=== PATIENT | female | born 1990 | race Caucasian/White ===

== ENCOUNTER 2018-10-06 13:37 | Outpatient (CLI) | payer OTHER ==
--- NOTE | 2018-10-06 16:26 | ULT ---
ULTRASOUND PELVIC TRANSVAGINAL WITH DOPPLER: HISTORY: Abdominal pain. COMPARISON: None. TECHNIQUE: Real-time, hull scale, color Doppler and spectral analysis of the pelvis was performed transabdominal and transvaginal approach. Uterus measures 9.3 x 5.6 cm. Endometrial thickness is 1.7 cm. Small v olume free fluid in the cul-de-sac. The right ovary measures 2.8 x 1.7 x 2 cm and the left ovary measures 3 x 2.9 x 2.5 cm. No abnormal adnexal mass. Likely an anterior lower uterine body scar. IMPRESSION: Thickened endometrium measuring 1.7 cm. Endometrial hyperplasia a possibility given the patient's ag e. POS: [facility]
== END 2018-10-06 13:38 | disposition home or self-care (01) ==
LOC: BICULT 13:37
PROVIDERS: ATTEND Family Medicine
DX: R10.84 Generalized abdominal pain (principal); R93.89 Abnormal findings on diagnostic imaging of other specified body structures
CPT/HCPCS: 76856

== ENCOUNTER 2018-10-15 13:27 | Emergency (ER) | payer OTHER ==
[2018-10-15 14:41] LABS: #Basophils 0.1 thou/uL (0.0-0.2); #Eosinphils 0.2 thou/uL (0.0-0.7); #Lymphocytes 1.9 thou/uL (1.20-3.40); #Monocytes 0.4 thou/uL (0.11-0.59); #Neutrophils 5.3 thou/uL (1.40-6.50); %Basophils 0.7 % (0.0-1.0); %Lymphocytes 24.4 % (21.0-51.0); %Monocytes 4.6 % (0.0-10.0); %Neutrophils 67.3 % (42.0-75.0); Hemoglobin 13.2 g/dL (12.0-16.0); Mean Corpuscular HGB CONC 31.9 g/dL (32.0-36.0); Mean Corpuscular Hemoglobin 26.1 pg (27.0-31.0); Mean Corpuscular Volume 81.7 fL (78.0-98.0); Mean Platelet Volume 7.5 fL (7.4-10.4); Platelet Count 267 thou/uL (130-400); RBC Distribution Width 11.2 % (11.5-14.5); Red Blood Cell (RBC) Count 5.07 mill/uL (4.20-5.40); White Blood Cell (WBC) Count 7.9 thou/uL (4.8-10.8)
[2018-10-15 15:57] LABS: Bilirubin Negative (Negative); Blood, Urine Large (Negative); Clarity Cloudy (Clear); Glucose, Urine (Dipstick) Negative (Negative); Leukocyte Negative (Negative); Nitrite Negative (Negative); Protein, Urine (Dipstick) Negative (Neg-Trace); Urobilinogen 0.2 mg/dL (0.2-1.0); pH, Urine 5.5 (5.0-9.0)
[2018-10-15 15:59] LABS: Specific Gravity, Urine 1.025 (1.002-1.036)
[2018-10-15 16:02] LABS: RBC/HPF GREATER THAN 50-TNTC HPF (0-3); WBC/HPF 0-3 HPF (0-3)
[2018-10-15 16:03] LABS: Bacteria/HPF 1+ HPF (None Seen); Hyaline Casts/LPF 0-3 HYALINE CAST LPF (0-3 Hyaline)
[2018-10-15] MEDS ORDERED: cefTRIAXone\\ROCEPHIN 250 MG VIAL ONE (17:00)
[2018-10-15] MEDS ORDERED: Lidocaine 1% PF 5 ML VIAL ONE (17:00)
--- NOTE | 2018-10-15 17:03 | ULT ---
ULTRASOUND PELVIC TRANSVAGINAL: 10/15/18 HISTORY: History of pelvic pain. COMPARISON: Transvaginal ultrasound 10/06/18. FINDINGS: Real time hull scale, color doppler and spectral analysis of pelvis performed in transabdominal appro ach only. Uterus measures 8.7 x 5.1 x 4.3 cm. Endometrial thickness is 7 mm. Right ovary measures 3.1 x 1.9 x 1.7 cm. Left ovary measures 2.8 x 2.1 x 1.6 cm. Adequate vascular fl ow to both ovaries. No free fluid. IMPRESSION: Normal pelvic ultrasound exam. POS: [facility]
[2018-10-19 19:03] LABS: Chlamydia by PCR Not Detected (NotDetected); GC by PCR Not Detected (NotDetected)
== END 2018-10-15 17:25 | disposition home or self-care (01) ==
LOC: SCSER 13:27
DX: N94.6 Dysmenorrhea, unspecified (principal); F41.9 Anxiety disorder, unspecified; Z79.899 Other long term (current) drug therapy
CPT/HCPCS: 51701; 76856; 81003; 81015; 84702; 85025; 87480; 87491; 87510; 87591; 87660; 93976; 96372; A4353; J0696; J2001